=== PATIENT | male | born 1965 | race Hispanic/Latino ===

== ENCOUNTER 2024-10-31 06:05 | Inpatient (IN) | payer OTHER, SELFPAY ==
[2024-10-31] MEDS ORDERED: Metoprolol Tartrate 5 MG (5 mL) VIAL ONE ×2 (06:21→06:34)
[2024-10-31 06:41] LABS: Hematocrit 42.0 % (38.8-50.0); Hemoglobin 13.7 g/dL (13.5-17.5); Mean Corpuscular Hemoglobin 28.7 pg (27.0-33.0); Mean Corpuscular Volume 87.9 fL (81.2-95.1); Platelet Count 260 10x3/uL (150-450); Red Blood Cell (RBC) Count 4.78 10x6/uL (4.32-5.72); White Blood Cell (WBC) Count 9.99 10x3/uL (3.5-10.5)
[2024-10-31 06:43] LABS: MDiff Complete? YES; Platelet Adequacy Comment Appears Adequate; RBC Morphology Within Normal Limits
[2024-10-31 06:53] LABS: ALT (SGPT) 7 U/L (Less than 45); AST (SGOT) 15 U/L (11-34); Albumin 3.9 g/dL (3.1-4.5); Alkaline Phosphatase 77 U/L (40-110); Anion Gap 14 mmol/L (10-20); BUN (Urea Nitrogen) 35 mg/dL (8.4-25.7); Bilirubin, Total 0.3 mg/dL (0.3-1.2); CK (CPK) 45 U/L (30-200); Calc. Creatinine Clearance 0 mL/min (70-130); Calcium 9.3 mg/dL (7.8-10.44); Carbon Dioxide 23 mmol/L (23-31); Chloride 105 mmol/L (98-107); Globulin 4.1 g/dL (2.4-3.5); Glucose 177 mg/dL (80-115); Magnesium 1.6 mg/dL (1.6-2.6); Potassium 4.8 mmol/L (3.5-5.1); Sodium 137 mmol/L (136-145)
[2024-10-31 06:54] LABS: Troponin I 0.016 ng/mL (< 0.028)
[2024-10-31] MEDS ORDERED: Ondansetron PF 4 MG/2 ML Vial IVP PRN (08:45)
[2024-10-31] MEDS ORDERED: Acetaminophen 325 MG TAB PO PRN (08:45)
[2024-10-31] MEDS ORDERED: Magnesium 2 GM/50 ML BAG (IN WATER) ONE (14:17)
[2024-10-31 15:05] LABS: Troponin I 0.010 ng/mL (< 0.028)
[2024-10-31 15:14] VITALS: BMI 26.6
[2024-10-31 17:50] LABS: Troponin I Less than 0.010 ng/mL (< 0.028)
[2024-10-31] MEDS ORDERED: Glucagon 1 MG/ML KIT IM PRN (18:52)
[2024-10-31] MEDS ORDERED: Dextrose 50% Abboject 50 ML SYRINGE SLOW IVP PRN (18:52)
[2024-10-31 20:31] LABS: Troponin I 0.019 ng/mL (< 0.028)
[2024-10-31] MEDS: Apixaban 5 MG TAB PO SCH (20:51)
[2024-11-01 04:02] LABS: #Basophils Less than 0.03 10x3/uL (0.0-0.2); #Eosinophils 0.16 10x3/uL (0.0-0.5); #Monocytes 0.64 10x3/uL (0.0-1.1); #Neutrophils 4.04 10x3/uL (1.5-8.4); %Basophils 0.3 % (0.0-2.0); %Eosinophils 2.1 % (0.0-6.0); %Lymphocytes 37.5 % (18.0-47.0); %Monocytes 8.2 % (0.0-10.0); %Neutrophils 51.8 % (40.0-75.0); Hematocrit 37.1 % (38.8-50.0); Hemoglobin 11.6 g/dL (13.5-17.5); Mean Corpuscular Hemoglobin 27.5 pg (27.0-33.0); Mean Corpuscular Volume 87.9 fL (81.2-95.1); Platelet Count 215 10x3/uL (150-450); Red Blood Cell (RBC) Count 4.22 10x6/uL (4.32-5.72); White Blood Cell (WBC) Count 7.79 10x3/uL (3.5-10.5)
[2024-11-01 04:21] LABS: Anion Gap 10 mmol/L (10-20); BUN (Urea Nitrogen) 25 mg/dL (8.4-25.7); Calc. Creatinine Clearance 70 mL/min (70-130); Calcium 8.7 mg/dL (7.8-10.44); Carbon Dioxide 25 mmol/L (23-31); Chloride 109 mmol/L (98-107); Glucose 126 mg/dL (80-115); Potassium 5.0 mmol/L (3.5-5.1); Sodium 139 mmol/L (136-145)
[2024-11-01] MEDS: Aspirin Chewable 81 MG TAB PO SCH (09:07)
[2024-11-01] MEDS: Losartan 50 MG TAB PO SCH (09:07)
[2024-11-01] MEDS: Pantoprazole 40 MG DR.TAB PO SCH (09:07)
[2024-11-01] MEDS: Simvastatin 10 MG TAB PO SCH ×2 (09:08→20:49)
[2024-11-01] MEDS: Magnesium 2 GM/50 ML(in water) 2 GM in Premix 1 BAG IVPB SCH (13:41)
[2024-11-02 05:06] LABS: #Basophils 0.04 10x3/uL (0.0-0.2); #Eosinophils 0.22 10x3/uL (0.0-0.5); #Monocytes 0.60 10x3/uL (0.0-1.1); #Neutrophils 4.04 10x3/uL (1.5-8.4); %Basophils 0.5 % (0.0-2.0); %Eosinophils 2.9 % (0.0-6.0); %Lymphocytes 35.8 % (18.0-47.0); %Monocytes 7.8 % (0.0-10.0); %Neutrophils 52.9 % (40.0-75.0); Hematocrit 38.0 % (38.8-50.0); Hemoglobin 12.3 g/dL (13.5-17.5); Mean Corpuscular Hemoglobin 28.4 pg (27.0-33.0); Mean Corpuscular Volume 87.8 fL (81.2-95.1); Platelet Count 210 10x3/uL (150-450); Red Blood Cell (RBC) Count 4.33 10x6/uL (4.32-5.72); White Blood Cell (WBC) Count 7.65 10x3/uL (3.5-10.5)
[2024-11-02 05:18] LABS: Anion Gap 11 mmol/L (10-20); BUN (Urea Nitrogen) 16 mg/dL (8.4-25.7); Calc. Creatinine Clearance 88 mL/min (70-130); Calcium 8.7 mg/dL (7.8-10.44); Carbon Dioxide 22 mmol/L (23-31); Chloride 111 mmol/L (98-107); Glucose 105 mg/dL (80-115); Magnesium 1.7 mg/dL (1.6-2.6); Potassium 4.4 mmol/L (3.5-5.1); Sodium 140 mmol/L (136-145)
[2024-11-02] MEDS: Magnesium 2 GM/50 ML(in water) 2 GM in Premix 1 BAG IVPB SCH (11:32)
[2024-11-03 05:55] LABS: #Basophils 0.03 10x3/uL (0.0-0.2); #Eosinophils 0.21 10x3/uL (0.0-0.5); #Monocytes 0.57 10x3/uL (0.0-1.1); #Neutrophils 4.18 10x3/uL (1.5-8.4); %Basophils 0.4 % (0.0-2.0); %Eosinophils 2.8 % (0.0-6.0); %Lymphocytes 33.8 % (18.0-47.0); %Monocytes 7.5 % (0.0-10.0); %Neutrophils 55.2 % (40.0-75.0); Hematocrit 36.1 % (38.8-50.0); Hemoglobin 11.7 g/dL (13.5-17.5); Mean Corpuscular Hemoglobin 28.1 pg (27.0-33.0); Mean Corpuscular Volume 86.8 fL (81.2-95.1); Platelet Count 221 10x3/uL (150-450); Red Blood Cell (RBC) Count 4.16 10x6/uL (4.32-5.72); White Blood Cell (WBC) Count 7.57 10x3/uL (3.5-10.5)
[2024-11-03 06:11] LABS: Anion Gap 12 mmol/L (10-20); BUN (Urea Nitrogen) 20 mg/dL (8.4-25.7); Calc. Creatinine Clearance 74 mL/min (70-130); Calcium 8.7 mg/dL (7.8-10.44); Carbon Dioxide 23 mmol/L (23-31); Chloride 108 mmol/L (98-107); Glucose 103 mg/dL (80-115); Potassium 4.7 mmol/L (3.5-5.1); Sodium 138 mmol/L (136-145)
[2024-11-03 11:48] VITALS: BP 147/83; TEMP 97.9
== END 2024-11-03 15:00 | disposition home or self-care (01) | DRG 309 ==
LOC: SUATTDRO 06:05 → CSHERS 06:05 → CSHTELE 14:10
PROVIDERS: ADMIT Family Medicine; ATTEND Internal Medicine
DX: R00.1 Bradycardia, unspecified (principal); N17.9 Acute kidney failure, unspecified; R42 Dizziness and giddiness; I48.0 Paroxysmal atrial fibrillation; I49.5 Sick sinus syndrome; I10 Essential (primary) hypertension; E11.9 Type 2 diabetes mellitus without complications; Z79.899 Other long term (current) drug therapy; Z79.01 Long term (current) use of anticoagulants; Z79.84 Long term (current) use of oral hypoglycemic drugs; E78.5 Hyperlipidemia, unspecified; E83.42 Hypomagnesemia; K59.00 Constipation, unspecified; I44.1 Atrioventricular block, second degree; E78.00 Pure hypercholesterolemia, unspecified; K21.9 Gastro-esophageal reflux disease without esophagitis; I25.2 Old myocardial infarction
CPT/HCPCS: 36415; 36416; 70450; 71045; 80048; 80053; 82550; 83735; 83880; 84443; 84484; 85025; 93005; 93010; 93306; 94760; 96365; 96366; 96375; J1815; J3475; J7030